=== PATIENT | female | born 1945 | race Caucasian/White ===

== ENCOUNTER 2016-04-27 13:49 | Emergency (ER) | payer MEDICARE, OTHER ==
--- NOTE | 2016-04-27 15:30 | ER PHYSICIAN DOCUMENTATION ---
Physician Documentation [facility] Name:Linn Mon Age:71 yrs Sex:Female :1945 Arrival Date:04/27/2016 Time:13:49 Bed2 Private MD:Mary Han ED, Chris Disposition: 04/27/16 13:58 Discharged to Home/Self Care. Impression: Cellulitis of Toe. - Condition is Good. - Discharge Instructions: CELLULITIS. - Prescriptions for Keflex 250 mg Oral Capsule - take 1 capsule by ORAL route every 6 hours for 10 days; 40 capsule. - Medical Reconciliation form form. - Follow up: Suraj Persaud DPM; When: 7 - 10 days; Reason: Recheck today's complaints, Continuance of care. - Problem is new. - Symptoms are unchanged. HPI: 04/27 13:50 This 71 yrs old Female presents to ER via Private Vehicle with complaints of cd Toe Infection. 13:50 The patient presents with swelling, tenderness. The complaints affect the right foot, cd Right fourth toenail. Context: The problem was sustained at home, resulted from recent right 4th toenail removal by Music Publicist, Dr. Persaud, the patient can fully bear weight. Onset: The symptom(s)/episode began/occurred acutely, this morning. Associated signs and symptoms: Pertinent negatives: fever. Historical: - Allergies: No known drug Allergies; - Home Meds: 1. unknown - PMHx: unknown; - PSHx: toenail removed; - Tetanus: unknown. - Ebola Screening: : Patient negative for fever greater than or equal to 101.5 degrees Fahrenheit, and additional compatible Ebola Virus Disease symptoms. Patient denies exposure to infectious person. Patient denies travel to an Ebola-affected area in the 21 days before illness onset. No symptoms or risks identified at this time. . - Immunization history: Flu Vaccine < 1 year. - Social history: Smoking status: Smoking status: Patient states was never smoker of tobacco. ROS: 18:02 MS/extremity: Positive for erythema, swelling, tenderness, of the Right fourth toenail. cd 18:02 Constitutional: Negative for chills, fever. 18:02 All other systems are negative. Exam: 18:02 Musculoskeletal/extremity: Extremities: grossly normal except: noted in the right cd fourth toe and Right fourth toenail: swelling, tenderness, ROM: no acute changes, Circulation is intact in all extremities. Sensation intact. 18:02 Skin: cellulitis, that is mild, on the right fourth toe and Right fourth toenail. Vital Signs: 13:55 BP 155 / 73; Pulse 83; Resp 16; Temp 98(O); Pulse Ox 99% on R/A; Pain 2/10; tg MDM: 13:57 Patient medically screened. cd 13:58 Data reviewed: vital signs, nurses notes, old medical records, and as a result, I will cd discharge patient, administer antibiotics Keflex. Data interpreted: Pulse oximetry: on room air is 99 %. Interpretation: normal. Counseling: I had a detailed discussion with the patient and/or guardian regarding: the historical points, exam findings, and any diagnostic results supporting the discharge/admit diagnosis, the need for outpatient follow up, for a recheck, with the patient's primary care provider, to return to the emergency department if symptoms worsen or persist or if there are any questions or concerns that arise at home. Dispensed Medications: No medications were administered Signatures: Corey Vaughn, RN RN tg Meet Salamanca MD MD cd
--- NOTE | 2016-04-27 15:30 | ER NURSING DOCUMENTATION ---
Nurse's Notes [facility] Name:Linn Mon Age:71 yrs Sex:Female :1945 Arrival Date:04/27/2016 Time:13:49 Bed2 Private MD:Mary Han Diagnosis:Cellulitis of Toe Presentation: 04/27 13:51 Acuity: MAGNOLIA 4 tg 13:54 Presenting complaint: Patient states: Rt 4th toe red/tender. Transition of care: tg patient was not received from another setting of care. 13:54 Method Of Arrival: Private Vehicle tg Triage Assessment: 14:00 General: Appears in no apparent distress, Behavior is cooperative. Pain: Complains of tg pain in Right fourth toenail. Cardiovascular:. Respiratory: Respiratory effort is even, unlabored. Derm: Skin is pink, warm & dry. Injury Description: toenail removed by feller operator 8 days ago. Skin around toenail has become reddened, tender. Historical: - Allergies: No known drug Allergies; - Home Meds: 1. unknown - PMHx: unknown; - PSHx: toenail removed; - Tetanus: unknown. - Ebola Screening: : Patient negative for fever greater than or equal to 101.5 degrees Fahrenheit, and additional compatible Ebola Virus Disease symptoms. Patient denies exposure to infectious person. Patient denies travel to an Ebola-affected area in the 21 days before illness onset. No symptoms or risks identified at this time. . - Immunization history: Flu Vaccine < 1 year. - Social history: Smoking status: Smoking status: Patient states was never smoker of tobacco. Screenin:57 Infectious Disease Risk Unable to Obtain. Abuse screen: Denies threats or abuse. Denies tg injuries from another. Nutritional screening: No deficits noted. Vital Signs: 13:55 BP 155 / 73; Pulse 83; Resp 16; Temp 98(O); Pulse Ox 99% on R/A; Pain 2/10; tg ED Course: 13:50 Patient arrived in ED. ama 13:50 Mary Han MD is Private Physician. ama 13:51 Triage completed. tg 13:54 Corey Vaughn, JAY is Primary Nurse. tg 13:57 Meet Salamanca MD is Attending Physician. cd 13:57 Suraj Persaud DPM is Referral Physician. cd 13:57 Valuables Remains with patient. tg Administered Medications: No medications were administered Outcome: 13:58 Discharge ordered by . cd 14:00 Discharged to home ambulatory. rs 14:00 Condition: good 14:00 Discharge instructions given to patient, Instructed on discharge instructions, Demonstrated understanding of instructions. 15:30 Patient left the ED. tg Signatures: Corey Vaughn RN RN tg Monica Hammond RN RN rs Meet Salamanca MD MD cd Averdick, Andrew, Reg Reg ama
== END 2016-04-27 15:30 | disposition home or self-care (01) ==
LOC: ER 13:49
DX: L03.031 Cellulitis of right toe (principal)
CPT/HCPCS: 99281; 99282